=== PATIENT | female | born 1965 | race Hispanic/Latino ===

== ENCOUNTER 2024-02-10 17:53 | Emergency (ER) | payer OTHER ==
[2024-02-10] MEDS ORDERED: Piperacillin/Tazobactam 3.375 GM VIAL ONE (18:16)
[2024-02-10 18:35] LABS: ALT (SGPT) 172 U/L (8-55); AST (SGOT) 252 U/L (5-34); Alkaline Phosphatase 281 U/L (40-110); Anion Gap 15 mmol/L (10-20); BUN (Urea Nitrogen) 18 mg/dL (9.8-20.1); Bilirubin, Total 1.4 mg/dL (0.2-1.2); Calc. Creatinine Clearance 0 mL/min (70-130); Calcium 8.8 mg/dL (7.8-10.44); Carbon Dioxide 23 mmol/L (22-29); Chloride 106 mmol/L (98-107); Estimated GFR 73; Globulin 3.3 g/dL (2.4-3.5); Glucose 207 mg/dL (70-105); Lipase 53 U/L (8-78); Potassium 3.6 mmol/L (3.5-5.1); Protein, Total 6.3 g/dL (6.0-8.3); Sodium 140 mmol/L (136-145)
[2024-02-10 19:01] LABS: #Basophils 0.01 10x3/uL (0.0-0.2); #Eosinophils 0.01 10x3/uL (0.0-0.5); #Monocytes 0.26 10x3/uL (0.0-1.1); #Neutrophils 5.74 10x3/uL (1.5-8.4); %Basophils 0.2 % (0.0-2.0); %Eosinophils 0.2 % (0.0-6.0); %Lymphocytes 7.5 % (18.0-47.0); %Neutrophils 87.8 % (40.0-75.0); Hematocrit 31.8 % (34.9-44.5); Hemoglobin 9.5 g/dL (12.0-15.5); Mean Corpuscular HGB CONC 29.9 g/dL (32.0-36.0); Mean Corpuscular Hemoglobin 21.8 pg (27.0-33.0); Mean Corpuscular Volume 73.1 fL (81.6-98.3); Mean Platelet Volume 9.5 fL (7.4-10.4); Platelet Count 321 10x3/uL (150-450); RBC Distribution Width 17.2 % (11.5-14.5); Red Blood Cell (RBC) Count 4.35 10x6/uL (3.90-5.03); White Blood Cell (WBC) Count 6.5 10x3/uL (3.5-10.5)
[2024-02-10] MEDS ORDERED: Ondansetron PF 4 MG/2 ML Vial ONE (19:30)
[2024-02-10] MEDS ORDERED: Vancomycin 2 GM in Sodium Chloride 0.9% 500 ML IVPB SCH (19:30)
[2024-02-10 19:45] LABS: Prothrombin Time 10.5 sec (9.5-12.1)
[2024-02-10 19:48] LABS: Magnesium 1.3 mg/dL (1.6-2.6)
[2024-02-10 19:48] LABS: Actual Bicarbonate (HCO3v) 19.2 mEq/L (22-28); Analyzer IN Cardio CS ER; Base Excess -6.1 mEq/L (-2 - +2); Chloride (VBG) 107 mmol/L (98-106); Critical Notified By: CP.PH; Hematocrit-VBG 33 % (36.0-47.0); Hemoglobin (Hb) 11.2 g/dL (11.7-16.0); Puncture Site Other Site; Sodium 140 mmol/L (133-146); pH (venous) 7.332 (7.32-7.43)
[2024-02-10 19:50] LABS: Bilirubin Neg (Negative); Blood, Urine 10 (Negative); Glucose, Urine (Dipstick) 100 mg/dL (Negative); Ketone, Urine Negative (Negative); Leukocyte 25 (Negative); Nitrite Negative (Negative); Protein, Urine (Dipstick) 100 mg/dl (Neg-Trace); Urobilinogen Normal mg/dL (Less than 2)
[2024-02-10 19:52] LABS: Troponin I Less than 0.010 ng/mL (< 0.028)
[2024-02-10] MEDS ORDERED: NOREPINEPHRINE 8 MG/250 ML-D5W 250 ML ONE (20:00)
[2024-02-10 20:04] LABS: PTT Less than 20.0 sec (22.0-33.0)
[2024-02-10] MEDS ORDERED: Magnesium 2 GM/50 ML BAG (IN WATER) ONE (20:38)
[2024-02-10 20:41] LABS: Anisocytosis SLIGHT = 6-15 cells (100X) (0-5/hpf); Hypochromia SLIGHT = 6-15 cells (100X) (0-5/hpf); Microcytosis SLIGHT = 6-15 cells (100X) (0-5/hpf)
[2024-02-10 20:43] LABS: Macrocytosis SLIGHT = 6-15 cells (100X) (0-5/hpf); Polychromasia SLIGHT = 2-3 cells (100X) (0-2/hpf)
[2024-02-10 20:44] LABS: Ovalocytes SLIGHT = 2-5 cells (100X) (0-1/hpf)
[2024-02-10 20:45] LABS: Large Platelets SLIGHT (None Seen); Platelet Adequacy Comment Appears Adequate
[2024-02-10 21:07] LABS: Clarity Clear (Clear)
[2024-02-10 21:08] LABS: Bacteria/HPF None Seen HPF (None Seen); CAUTI Indications for Culture Pelvic or flank pain; RBC/HPF 0-3 HPF (0-3); Squamous Epithelial 0-3 HPF (0-3); Urine Culture Reflex No No; WBC/HPF 0-3 HPF (0-3)
[2024-02-10 21:26] LABS: Critical Call Chem-Lactate ERS.OM AT 2125
[2024-02-10] MEDS ORDERED: Acetaminophen 500 MG TAB ONE (21:29)
== END 2024-02-10 22:05 | disposition short-term general hospital (02) ==
LOC: CSHERS 17:53
DX: I95.9 Hypotension, unspecified (principal); Z55.6 Problems related to health literacy
CPT/HCPCS: 36415; 70450; 71045; 74177; 80053; 81001; 82805; 83605; 83690; 83735; 83880; 84145; 84443; 84484; 85025; 85610; 85730; 87040; 87086; 93005; 96361; 96365; 96366; 96367; 96368; 96375; J2405; J2543; J3370; J3475; J7030